=== PATIENT | female | born 1945 | race Caucasian/White ===

== ENCOUNTER 2024-06-11 16:27 | Emergency (ER) | payer MEDICARE ==
[~2024-06-11] VITALS: Ht 154.9 cm; Wt 66.7 kg
[2024-06-11] MEDS ORDERED: SODIUM CHLORIDE FLUSH 10 ML SYR IV PRN (17:00)
[2024-06-11 17:20] LABS: BASOPHILS % 0.6 % (0.0-1.0); EOSINOPHILS # (AUTO) 0.1 (0.0-0.4); EOSINOPHILS % 1.7 % (0.0-6.0); HEMATOCRIT 43.1 % (34.2-44.1); LYMPHOCYTES # (AUTO) 1.8 (1.0-3.2); MEAN CORPUSCULAR HEMOGLOBIN 29.9 pg (28-32); MEAN CORPUSCULAR HGB CONC 32.5 g/dL (31-35); MEAN CORPUSCULAR VOLUME 92.1 fL (81-99); MONOCYTES # (AUTO) 0.6 (0.2-0.8); MONOCYTES % 8.9 % (4.4-11.3); NEUTROPHILS # (AUTO) 4.5 (2.1-6.9); NEUTROPHILS % 63.5 % (38.7-80.0); PLATELET COUNT 259 x10e3/uL (140-360); RED BLOOD COUNT 4.68 x10e6/uL (3.6-5.1)
[2024-06-11 17:27] LABS: INR 0.9; PROTHROMBIN TIME 12.8 seconds (11.9-14.5)
[2024-06-11 17:28] LABS: PARTIAL THROMBOPLASTIN TIME 33.4 seconds (23.8-35.5)
[2024-06-11 17:36] LABS: ALANINE AMINOTRANSFERASE 9 IU/L (0-55); ALBUMIN 3.6 g/dL (3.5-5.0); ALKALINE PHOSPHATASE 115 IU/L (40-150); ANION GAP 13.3 mmol/L (8-16); BLOOD UREA NITROGEN 12 mg/dL (7-26); BUN/CREATININE RATIO 15 (6-25); CALCIUM 8.6 mg/dL (8.4-10.2); CARBON DIOXIDE 23 mmol/L (22-29); CHLORIDE 103 mmol/L (98-107); CREATININE, SERUM 0.79 mg/dL (0.57-1.11); EST GLOMERULAR FILTRATION RATE 77 ML/MIN (>=60); GLUCOSE 89 mg/dL (74-118); POTASSIUM 4.3 mmol/L (3.5-5.1); SODIUM 135 mmol/L (136-145); TOTAL PROTEIN 7.2 g/dL (6.5-8.1)
[2024-06-11 17:39] LABS: BILIRUBIN,URINE NEGATIVE (NEGATIVE); CLARITY,URINE SL CLOUDY (CLEAR); COLOR,URINE YELLOW (YELLOW); GLUCOSE, URINE NEGATIVE (NEGATIVE); KETONES,URINE NEGATIVE (NEGATIVE); LEUKOCYTE ESTERASE ,URINE SMALL (NEGATIVE); NITRITE,URINE NEGATIVE (NEGATIVE); PH,URINE 5.5 (5 - 7); PROTEIN,URINE DIPSTICK NEGATIVE (NEGATIVE); URINE UROBILINOGEN 0.2 mg/dL (0.2 - 1)
[2024-06-11 17:43] LABS: TROPONIN I < 0.001 ng/mL (0-0.300)
[2024-06-11 17:51] LABS: BILIRUBIN,TOTAL 0.4 mg/dL (0.2-1.2)
[2024-06-11 17:53] LABS: BACTERIA,URINE RARE /HPF; RENAL EPITHELIAL CELLS,URINE FEW; TRANSITIONAL EPI CELLS,URINE FEW
[2024-06-11] MEDS: ASPIRIN 81 MG CHEW TAB PO ONE (18:53)
[2024-06-11 20:39] VITALS: PULSE 69; RESP 17; TEMP 98.7; O2SAT 97
== END 2024-06-11 20:53 | disposition other institution (70) ==
LOC: ER 16:38
DX: R47.81 Slurred speech (principal); I63.9 Cerebral infarction, unspecified; I10 Essential (primary) hypertension; E78.5 Hyperlipidemia, unspecified
CPT/HCPCS: 36415; 70450; 71045; 80053; 81001; 83880; 84484; 85025; 85610; 85730; 93005; 94760; 99284